=== PATIENT | male | born 1995 | race African-American/Black ===

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

== ENCOUNTER 2019-11-29 10:51 | Emergency (ER) | payer OTHER ==
[~2019-11-29] VITALS: Ht 175.3 cm; Wt 71.7 kg
[~2019-11-29 10:51] MED LIST: NAPROSYN500 MG PO; ULTRAM 50MG TAB50 MG PO
[2019-11-29] MEDS ORDERED: MOBIC7.5 MG PO (12:10)
[2019-11-29 12:45] VITALS: BP 116/52
== END 2019-11-29 12:49 | disposition home or self-care (01) ==
LOC: ER 10:51
DX: S39.011A Strain of muscle, fascia and tendon of abdomen, initial encounter (principal); Z79.899 Other long term (current) drug therapy; Z91.018 Allergy to other foods; X58.XXXA Exposure to other specified factors, initial encounter; Y93.89 Activity, other specified; Y92.89 Other specified places as the place of occurrence of the external cause; Y99.8 Other external cause status